=== PATIENT | male | born 1990 | race Native Hawaiian/Other Pacific Islander ===

== ENCOUNTER 2018-02-26 12:40 | Emergency (ER) | payer OTHER ==
[2018-02-26 12:47] VITALS: BP 128/90
== END 2018-02-26 15:01 | disposition left against medical advice (07) ==
LOC: ED 12:40
DX: M25.552 Pain in left hip (principal); Y04.2XXA Assault by strike against or bumped into by another person, initial encounter; Y93.89 Activity, other specified; Y92.89 Other specified places as the place of occurrence of the external cause; Y99.8 Other external cause status; F12.90 Cannabis use, unspecified, uncomplicated; Z53.21 Procedure and treatment not carried out due to patient leaving prior to being seen by health care provider

== ENCOUNTER 2018-03-06 20:41 | Emergency (ER) | payer OTHER ==
[2018-03-06 20:46] VITALS: BP 119/79
== END 2018-03-06 21:00 | disposition left against medical advice (07) ==
LOC: ED 20:41
DX: Z00.8 Encounter for other general examination (principal); Z53.21 Procedure and treatment not carried out due to patient leaving prior to being seen by health care provider

== ENCOUNTER 2018-05-05 12:26 | Emergency (ER) | payer OTHER ==
[2018-05-05 13:01] VITALS: BP 112/80
== END 2018-05-05 16:19 | disposition left against medical advice (07) ==
LOC: ED 12:26
DX: Z53.21 Procedure and treatment not carried out due to patient leaving prior to being seen by health care provider (principal)